=== PATIENT | female | born 1995 | race Two or more races ===

== ENCOUNTER → 2017-06-20 | Outpatient (CLI) | payer OTHER | END | disposition home or self-care (01) | LOC: LAB 12:54 | PROVIDERS: ATTEND Obstetrics & Gynecology Maternal & Fetal Medicine | DX: Z36.9 Encounter for antenatal screening, unspecified (principal) | CPT/HCPCS: 36415; 84163; 84702 ==

== ENCOUNTER → 2017-07-19 | Outpatient (CLI) | payer OTHER | END | disposition home or self-care (01) | LOC: LAB 15:39 | PROVIDERS: ATTEND Obstetrics & Gynecology Maternal & Fetal Medicine | DX: Z36.9 Encounter for antenatal screening, unspecified (principal) | CPT/HCPCS: 36415; 82105; 82677; 84702; 86336 ==

== ENCOUNTER → 2017-10-20 | Outpatient (CLI) | payer OTHER | END | disposition home or self-care (01) | LOC: LAB 07:58 | PROVIDERS: ATTEND Obstetrics & Gynecology | DX: Z34.81 Encounter for supervision of other normal pregnancy, first trimester (principal) | CPT/HCPCS: 36415; 82951 ==

== ENCOUNTER 2017-12-16 11:07 | Outpatient (CLI) | payer OTHER ==
[~2017-12-16] VITALS: Ht 154.9 cm; Wt 115.0 kg
[2017-12-16 11:19] VITALS: BP 134/88
[2017-12-16 12:22] LABS: MICROSCOPIC INDICATED
[2017-12-16 12:27] LABS: ALANINE AMINOTRANSFERASE 22 U/L (12-78); ALBUMIN 2.5 g/dL (3.4-5.0); ALKALINE PHOSPHATASE 152 U/L (45-117); ANION GAP 9 mmol/L (5-15); BILIRUBIN,TOTAL 0.3 mg/dL (0.2-1.0); CALCIUM 8.2 mg/dL (8.5-10.1); CHLORIDE 106 mmol/L (98-107); CREATININE 0.52 mg/dL (0.55-1.02); TOTAL PROTEIN 6.9 g/dL (6.4-8.2)
[2017-12-16 12:28] LABS: BILIRUBIN, DIRECT < 0.1 mg/dL (0.1-0.2)
[2017-12-16 12:57] LABS: BASOPHILS # (AUTO) 0.07 x10^3/uL (0-0.1); BASOPHILS % (AUTO) 1 % (0-1); EOSINOPHILS # (AUTO) 0.06 x10^3/uL (0-0.4); EOSINOPHILS % (AUTO) 1 % (1-7); LYMPHOCYTES # (AUTO) 1.96 x10^3/uL (1-3.4); LYMPHOCYTES % (AUTO) 15 % (22-44); MD NO; MEAN CORPUSCULAR HEMOGLOBIN 28.7 pg (27.0-34.8); MEAN CORPUSCULAR HGB CONC 33.4 g/dL (32.4-35.8); MEAN CORPUSCULAR VOLUME 85.9 fL (80-100); MEAN PLATELET VOLUME 10.7 fL (7.4-10.4); MONOCYTES # (AUTO) 0.54 x10^3/uL (0.2-0.8); MONOCYTES % (AUTO) 4 % (2-9); NEUTROPHILS # (AUTO) 10.14 x10^3/uL (1.8-6.8); NEUTROPHILS % (AUTO) 79 % (42-75); PLATELET COUNT 279 x10^3/uL (130-400); RED BLOOD COUNT 4.07 x10^6/uL (3.82-5.3); RED CELL DISTRIBUTION WIDTH 15.2 % (9.6-15.2)
[2017-12-16] MEDS ORDERED: PREN-3 PO (13:17)
== END 2017-12-16 13:30 | disposition home or self-care (01) ==
LOC: LDOP 11:07
PROVIDERS: ATTEND Obstetrics & Gynecology
DX: O10.913 Unspecified pre-existing hypertension complicating pregnancy, third trimester (principal); Z3A.38 38 weeks gestation of pregnancy
CPT/HCPCS: 36415; 59025; 80053; 81001; 82248; 82570; 84156; 84550; 85025; 99211; G0463

== ENCOUNTER 2017-12-23 08:05 | Inpatient (IN) | payer OTHER ==
[~2017-12-23] VITALS: Ht 154.9 cm; Wt 116.0 kg
[~2017-12-23 08:05] MED LIST: PREN-3 PO
[2017-12-23] MEDS ORDERED: OXYTOCIN 30U/ 0.9% NaCL 500ML 500 ML IV PRN (17:36)
[2017-12-23] MEDS ORDERED: OXYTOCIN 30U/ 0.9% NaCL 500ML 500 ML IV ONE (17:36)
[2017-12-23] MEDS: LACTATED RINGERS 1,000 ML IV SCH (17:50)
[2017-12-23] MEDS ORDERED: NEWBORN KIT ONE (17:53)
[2017-12-23] MEDS ORDERED: LIDOCAINE/PF 1%, 30ML ONE (17:54)
[2017-12-23] MEDS ORDERED: OXYTOCIN 30U/ 0.9% NaCL 500ML 500 ML ONE (17:54)
[2017-12-23] MEDS ORDERED: MISOPROSTOL 200 MCG TABLET ONE (17:54)
[2017-12-23] MEDS ORDERED: FENTANYL PF 100 MCG/2ML IV PRN (18:00)
[2017-12-23] MEDS ORDERED: TERBUTALINE 1 MG/ML, 1ML IVPush PRN (18:00)
[2017-12-23] MEDS ORDERED: ALUMINUM/MAG/SIMETHICONE 30 ML UDC PO PRN (18:00)
[2017-12-23] MEDS ORDERED: ONDANSETRON 2MG/ML, 2ML IVPush PRN (18:00)
[2017-12-23] MEDS ORDERED: PENICILLIN GK 5,000,000 UNITS in SODIUM CHLORIDE 0.9% 100 ML IVPB ONE (18:00)
[2017-12-23] MEDS ORDERED: CALCIUM CARBONATE 500 MG TAB.CHEW PO PRN (18:00)
[2017-12-23 18:12] LABS: BASOPHILS # (AUTO) 0.07 x10^3/uL (0-0.1); BASOPHILS % (AUTO) 1 % (0-1); EOSINOPHILS # (AUTO) 0.04 x10^3/uL (0-0.4); EOSINOPHILS % (AUTO) 0 % (1-7); LYMPHOCYTES # (AUTO) 1.83 x10^3/uL (1-3.4); LYMPHOCYTES % (AUTO) 14 % (22-44); MD NO; MEAN CORPUSCULAR HEMOGLOBIN 28.6 pg (27.0-34.8); MEAN CORPUSCULAR HGB CONC 33.1 g/dL (32.4-35.8); MEAN CORPUSCULAR VOLUME 86.6 fL (80-100); MEAN PLATELET VOLUME 10.9 fL (7.4-10.4); MONOCYTES # (AUTO) 0.57 x10^3/uL (0.2-0.8); MONOCYTES % (AUTO) 4 % (2-9); NEUTROPHILS # (AUTO) 10.69 x10^3/uL (1.8-6.8); NEUTROPHILS % (AUTO) 81 % (42-75); PLATELET COUNT 285 x10^3/uL (130-400); RED BLOOD COUNT 4.09 x10^6/uL (3.82-5.3); RED CELL DISTRIBUTION WIDTH 14.9 % (9.6-15.2)
[2017-12-23] MEDS ORDERED: DIPH,PERTUSS(ACELL),TET VAC/PF NC IM-VACC ONE (19:00)
[2017-12-23 20:20] LABS: ALANINE AMINOTRANSFERASE 25 U/L (12-78); ALBUMIN 2.5 g/dL (3.4-5.0); ANION GAP 9 mmol/L (5-15); CALCIUM 8.4 mg/dL (8.5-10.1); CHLORIDE 109 mmol/L (98-107)
[2017-12-23 20:22] LABS: CREATININE 0.62 mg/dL (0.55-1.02)
[2017-12-23 20:23] LABS: ALKALINE PHOSPHATASE 151 U/L (45-117); BILIRUBIN,TOTAL 0.2 mg/dL (0.2-1.0); TOTAL PROTEIN 6.9 g/dL (6.4-8.2)
[2017-12-23] MEDS: PENICILLIN GK 2,500,000 UNITS in DEXTROSE 5% 100 ML IVPB SCH (21:19)
[2017-12-23] MEDS ORDERED: FENTANYL PF 100 MCG/2ML ONE ×2 (22:05→23:23)
[2017-12-23] MEDS: FENTANYL PF 100 MCG/2ML IVPush PRN ×2 (22:06→23:24)
[2017-12-23] MEDS: D5%-LACTATED RINGERS 1,000 ML IV SCH (22:37)
[2017-12-24] MEDS ORDERED: FENTANYL PF 100 MCG/2ML ONE ×4 (01:03→05:30)
[2017-12-24] MEDS: FENTANYL PF 100 MCG/2ML IVPush PRN ×2 (01:07→02:50)
[2017-12-24] MEDS: D5%-LACTATED RINGERS 1,000 ML IV SCH (01:36)
[2017-12-24] MEDS: PENICILLIN GK 2,500,000 UNITS in DEXTROSE 5% 100 ML IVPB SCH ×2 (02:00→06:00)
[2017-12-24] MEDS ORDERED: SODIUM CITRATE/CITRIC ACID 30 ML UDC ONE (03:37)
[2017-12-24] MEDS ORDERED: METOCLOPRAMIDE 5 MG/ML, 2ML ONE (03:37)
[2017-12-24] MEDS: LACTATED RINGERS 1,000 ML IV SCH ×7 (03:39→23:53)
[2017-12-24] MEDS ORDERED: TERBUTALINE 1 MG/ML, 1ML ONE (03:40)
[2017-12-24] MEDS ORDERED: FENTANYL/BUPIV./NS/PF 250 ML EPIDCONT SCH (04:27)
[2017-12-24] MEDS ORDERED: LACTATED RINGERS 1,000 ML IV SCH (04:27)
[2017-12-24] MEDS ORDERED: FENTANYL/BUPIV./NS/PF 250 ML EPIDCONT ONE (04:29)
[2017-12-24] MEDS ORDERED: BUPIVACAINE/PF 0.25% ONE (04:29)
[2017-12-24] MEDS ORDERED: EPHEDRINE 50 MG/ML, 1ML IVPush PRN ×2 (04:30→05:30)
[2017-12-24] MEDS ORDERED: LACTATED RINGERS 1,000 ML IVBOLUS PRN (04:30)
[2017-12-24] MEDS ORDERED: NALOXONE 0.4 MG/ML, 1ML IVPush PRN (04:30)
[2017-12-24] MEDS ORDERED: CEFAZOLIN 1,000 MG ONE ×2 (05:30→05:37)
[2017-12-24] MEDS ORDERED: HYDROmorphone 1 MG/ML, 1ML IV PRN (05:30)
[2017-12-24] MEDS ORDERED: PHENYLEPHRINE 10 MG/ML ONE (05:30)
[2017-12-24] MEDS ORDERED: MIDAZOLAM 1 MG/ML, 2ML IV PRN (05:30)
[2017-12-24] MEDS ORDERED: PROMETHAZINE 25 MG/ML, 1ML IV PRN (05:30)
[2017-12-24] MEDS ORDERED: EPHEDRINE 50 MG/ML, 1ML ONE (05:30)
[2017-12-24] MEDS ORDERED: OXYcodone 5 MG/5 ML ORAL.SOL UDC PO PRN (05:30)
[2017-12-24] MEDS ORDERED: SUCCINYLCHOLINE 20 MG/ML, 10ML ONE (05:30)
[2017-12-24] MEDS ORDERED: DEXAMETHASONE 4 MG/ML, 1ML ONE (05:30)
[2017-12-24] MEDS ORDERED: KETOROLAC 30 MG/1 ML ONE (05:30)
[2017-12-24] MEDS ORDERED: ALBUTEROL SULFATE 2.5 MG/3 ML NPPB PRN (05:30)
[2017-12-24] MEDS ORDERED: OXYTOCIN 10 UNITS/ML, 1ML ONE (05:30)
[2017-12-24] MEDS ORDERED: LABETALOL 5MG/ML, 20ML IV PRN (05:30)
[2017-12-24] MEDS ORDERED: hydrALAzine 20 MG/ML, 1ML IV PRN (05:30)
[2017-12-24] MEDS ORDERED: PROPOFOL 10 MG/ML, 20ML ONE (05:30)
[2017-12-24] MEDS ORDERED: HYDROcodone/APAP 7.5-325MG/15ML UDC PO PRN (05:30)
[2017-12-24] MEDS ORDERED: ONDANSETRON 2MG/ML, 2ML IVPush PRN (05:30)
[2017-12-24] MEDS ORDERED: ONDANSETRON 2MG/ML, 2ML ONE (05:30)
[2017-12-24] MEDS ORDERED: MEPERIDINE/PF 25MG/0.5ML IVPush PRN (05:30)
[2017-12-24] MEDS ORDERED: FENTANYL PF 100 MCG/2ML IV PRN (05:30)
[2017-12-24] MEDS ORDERED: LABETALOL 5MG/ML 40ML VIAL ONE (05:37)
[2017-12-24] MEDS ORDERED: MISOPROSTOL 200 MCG TABLET ONE (06:09)
[2017-12-24] MEDS: OXYTOCIN 30U/ 0.9% NaCL 500ML 500 ML IV SCH ×2 (06:45→16:45)
[2017-12-24] MEDS ORDERED: morphine SULFATE 10 MG/ML, 1ML IVPush PRN ×2 (07:00)
[2017-12-24] MEDS ORDERED: ACETAMINOPHEN 325 MG TABLET PO PRN (07:00)
[2017-12-24] MEDS ORDERED: ONDANSETRON 2MG/ML, 2ML IV PRN (07:00)
[2017-12-24] MEDS ORDERED: IBUPROFEN 600 MG TABLET PO PRN (07:00)
[2017-12-24] MEDS ORDERED: CARBOPROST TROMETHAMINE 250 MCG/ML, 1ML IM PRN (07:00)
[2017-12-24] MEDS ORDERED: MISOPROSTOL 200 MCG TABLET PR PRN (07:00)
[2017-12-24] MEDS ORDERED: METHYLERGONOVINE 0.2 MG/ML IM PRN (07:00)
[2017-12-24] MEDS ORDERED: morphine SULFATE 10 MG/ML, 1ML ONE (08:33)
[2017-12-24] MEDS: PRENATAL VIT/IRON/FA 1 EACH TABLET PO SCH (09:00)
[2017-12-24 09:05] VITALS: BP 145/81
[2017-12-24] MEDS: OXYcodone/APAP 5/325MG TABLET PO PRN ×4 (09:27→22:14)
[2017-12-24 11:25] VITALS: BP 127/74
[2017-12-24] MEDS: KETOROLAC 30 MG/1 ML IVPush SCH ×2 (11:50→18:04)
[2017-12-24 14:11] LABS: MEAN CORPUSCULAR HEMOGLOBIN 28.4 pg (27.0-34.8); MEAN CORPUSCULAR HGB CONC 33.2 g/dL (32.4-35.8); MEAN CORPUSCULAR VOLUME 85.6 fL (80-100); MEAN PLATELET VOLUME 10.6 fL (7.4-10.4); PLATELET COUNT 244 x10^3/uL (130-400); RED BLOOD COUNT 3.65 x10^6/uL (3.82-5.3); RED CELL DISTRIBUTION WIDTH 14.9 % (9.6-15.2)
[2017-12-24 14:27] LABS: BASOPHILS % (AUTO) 0 % (0-1); EOSINOPHILS % (AUTO) 0 % (1-7); LYMPHOCYTES # (AUTO) 1.57 x10^3/uL (1-3.4); LYMPHOCYTES % (AUTO) 7 % (22-44); MD SCAN; MONOCYTES # (AUTO) 0.45 x10^3/uL (0.2-0.8); MONOCYTES % (AUTO) 2 % (2-9); NEUTROPHILS # (AUTO) 19.93 x10^3/uL (1.8-6.8); NEUTROPHILS % (AUTO) 91 % (42-75)
[2017-12-24 16:00] VITALS: BP 108/69
[2017-12-24] MEDS ORDERED: DIPH,PERTUSS(ACELL),TET VAC/PF NC IM-VACC ONE (18:30)
[2017-12-24 19:48] VITALS: BP 128/84
[2017-12-24] MEDS: DOCUSATE 100 MG CAPSULE PO PRN (22:14)
[2017-12-25] MEDS: KETOROLAC 30 MG/1 ML IVPush SCH ×2 (00:01→05:45)
[2017-12-25 00:05] VITALS: BP 126/76
[2017-12-25] MEDS: OXYTOCIN 30U/ 0.9% NaCL 500ML 500 ML IV SCH ×2 (02:45→04:11)
[2017-12-25] MEDS: LACTATED RINGERS 1,000 ML IV SCH ×2 (02:45→04:10)
[2017-12-25 04:00] VITALS: BP 119/73
[2017-12-25] MEDS: OXYcodone/APAP 5/325MG TABLET PO PRN ×5 (04:05→21:13)
[2017-12-25 07:20] VITALS: BP 136/81
[2017-12-25] MEDS: PRENATAL VIT/IRON/FA 1 EACH TABLET PO SCH (08:19)
[2017-12-25] MEDS: DOCUSATE 100 MG CAPSULE PO PRN ×2 (08:19→21:13)
[2017-12-25] MEDS: IBUPROFEN 600 MG TABLET PO PRN ×2 (12:24→18:27)
[2017-12-25] MEDS ORDERED: ONDANSETRON 4 MG TABLET ONE (13:15)
[2017-12-25] MEDS ORDERED: ONDANSETRON ODT 4 MG ONE (13:47)
[2017-12-25] MEDS ORDERED: ONDANSETRON ODT 4 MG PO PRN (14:00)
[2017-12-25 14:55] VITALS: BP 146/79
[2017-12-25] MEDS ORDERED: MEASLES,MUMPS&RUBELLA VACC/PF 0.5 ML SQ-VACC ONE ×2 (17:35→18:00)
[2017-12-25 20:07] VITALS: BP 135/76
[2017-12-26] MEDS: OXYcodone/APAP 5/325MG TABLET PO PRN ×2 (01:11→07:45)
[2017-12-26] MEDS: IBUPROFEN 600 MG TABLET PO PRN ×4 (01:11→21:31)
[2017-12-26 07:45] VITALS: BP 123/80
[2017-12-26] MEDS: PRENATAL VIT/IRON/FA 1 EACH TABLET PO SCH (07:45)
[2017-12-26] MEDS: DOCUSATE 100 MG CAPSULE PO PRN ×2 (07:45→21:31)
[2017-12-26] MEDS ORDERED: IBUP-1222 PO (08:59)
[2017-12-26] MEDS ORDERED: OXYC-302 PO (08:59)
[2017-12-26] MEDS ORDERED: SENN-1 PO (09:00)
[2017-12-26] MEDS: FERROUS GLUCONATE 324 MG TABLET PO SCH ×2 (15:58→21:31)
[2017-12-26] MEDS: HYDROcodone/APAP 5/325 TABLET PO PRN ×2 (16:12→21:31)
[2017-12-26 20:00] VITALS: BP 147/80
[2017-12-27] MEDS: HYDROcodone/APAP 5/325 TABLET PO PRN ×2 (02:35→06:11)
[2017-12-27] MEDS: IBUPROFEN 600 MG TABLET PO PRN (06:11)
[2017-12-27 07:45] VITALS: BP 146/77
[2017-12-27] MEDS: DOCUSATE 100 MG CAPSULE PO PRN (07:57)
[2017-12-27] MEDS: PRENATAL VIT/IRON/FA 1 EACH TABLET PO SCH (07:57)
[2017-12-27] MEDS: FERROUS GLUCONATE 324 MG TABLET PO SCH (07:57)
== END 2017-12-27 13:35 | disposition home or self-care (01) | DRG 765 ==
LOC: LDIP 17:29 → 2NW 12-24 09:02
PROVIDERS: ADMIT Obstetrics & Gynecology; ATTEND Obstetrics & Gynecology
PROC: 10D00Z1 Extraction of Products of Conception, Low, Open Approach (ICD-10-PCS; principal; 2017-12-24)
PROC: 3E0234Z Introduction of Serum, Toxoid and Vaccine into Muscle, Percutaneous Approach (ICD-10-PCS; 2017-12-25)
DX: O99.214 Obesity complicating childbirth (principal); Z68.42 Body mass index [BMI] 45.0-49.9, adult; E66.01 Morbid (severe) obesity due to excess calories; O10.92 Unspecified pre-existing hypertension complicating childbirth; O62.1 Secondary uterine inertia; O69.1XX0 Labor and delivery complicated by cord around neck, with compression, not applicable or unspecified; O76 Abnormality in fetal heart rate and rhythm complicating labor and delivery; O77.0 Labor and delivery complicated by meconium in amniotic fluid; O99.824 Streptococcus B carrier state complicating childbirth; Z37.0 Single live birth; Z3A.39 39 weeks gestation of pregnancy; Z23 Encounter for immunization
CPT/HCPCS: 36415; 80053; 82803; 84550; 85025; 86850; 86900; 90715; J0690; J1100; J1885; J2405; J2540; J2704; J3010; Q0162; J0330; J2270; J2370; J2590; J3105; J7120; J7121

== ENCOUNTER 2020-05-22 08:26 | Emergency (ER) | payer OTHER ==
[~2020-05-22] VITALS: Ht 154.9 cm; Wt 115.1 kg
[~2020-05-22 08:26] MED LIST changes: +IBUP-1222 PO; +OXYC-302 PO; +SENN-92 PO
[2020-05-22 08:31] VITALS: BP 141/88
== END 2020-05-22 09:49 | disposition home or self-care (01) ==
LOC: ED 08:54
DX: U07.1 COVID-19 (principal); B34.9 Viral infection, unspecified
CPT/HCPCS: 36415; 71045; 87081; 87147; 87635; 87880; 99284

== ENCOUNTER 2021-03-24 00:06 | Inpatient (IN) | payer OTHER ==
[~2021-03-24] VITALS: Ht 154.9 cm; Wt 110.0 kg
[~2021-03-24 00:06] MED LIST changes: -OXYC-302 PO; +OXYC1TAB12 PO
[2021-03-24] MEDS ORDERED: METOCLOPRAMIDE 5 MG/ML, 2ML IV ONE (06:00)
[2021-03-24] MEDS ORDERED: CEFAZOLIN PMX 2GM/50ML 100 ML IVPB ONE (06:00)
[2021-03-24] MEDS ORDERED: LACTATED RINGERS 1,000 ML IVBOLUS ONE (06:00)
[2021-03-24] MEDS ORDERED: SODIUM CITRATE/CITRIC ACID 30 ML UDC PO ONE (06:00)
[2021-03-24 06:39] LABS: BASOPHILS % (AUTO) 0 % (0-1); EOSINOPHILS % (AUTO) 1 % (1-7); LYMPHOCYTES % (AUTO) 22 % (22-44); MEAN CORPUSCULAR HEMOGLOBIN 28.3 pg (27.0-34.8); MEAN CORPUSCULAR HGB CONC 33.3 g/dL (32.4-35.8); MEAN PLATELET VOLUME 9.7 fL (7.4-10.4); MONOCYTES % (AUTO) 5 % (2-9); NEUTROPHILS % (AUTO) 72 % (42-75); PLATELET COUNT 287 x10^3/uL (130-400); RED BLOOD COUNT 3.94 x10^6/uL (3.82-5.3); RED CELL DISTRIBUTION WIDTH 14.8 % (9.6-15.2)
[2021-03-24] MEDS ORDERED: EPHEDRINE 50 MG/ML, 1ML ONE (07:00)
[2021-03-24] MEDS ORDERED: CEFAZOLIN 1,000 MG ONE ×2 (07:00→08:18)
[2021-03-24] MEDS ORDERED: ASPI-963 PO (07:00)
[2021-03-24] MEDS ORDERED: OXYTOCIN 10 UNITS/ML, 1ML ONE (07:00)
[2021-03-24] MEDS ORDERED: EPINEPHRINE 1 MG/ML, 1ML ONE (07:00)
[2021-03-24] MEDS ORDERED: FENTANYL PF 100 MCG/2ML ONE (07:01)
[2021-03-24] MEDS ORDERED: MISOPROSTOL 200 MCG TABLET ONE (07:08)
[2021-03-24] MEDS ORDERED: NEWBORN KIT ONE (07:09)
[2021-03-24] MEDS ORDERED: morphine SULFATE 10 MG/ML, 1ML IVPush PRN ×2 (07:30)
[2021-03-24] MEDS ORDERED: ACETAMINOPHEN 325 MG TABLET PO PRN ×2 (07:30)
[2021-03-24] MEDS: LACTATED RINGERS 1,000 ML IV SCH ×5 (07:30→23:30)
[2021-03-24] MEDS ORDERED: PROMETHAZINE 12.5 MG SUPP PR PRN (07:30)
[2021-03-24] MEDS ORDERED: ONDANSETRON 2MG/ML, 2ML IV PRN (07:30)
[2021-03-24] MEDS ORDERED: CARBOPROST TROMETHAMINE 250 MCG/ML, 1ML IM PRN (07:30)
[2021-03-24] MEDS ORDERED: MISOPROSTOL 200 MCG TABLET PR PRN (07:30)
[2021-03-24] MEDS ORDERED: ONDANSETRON 2MG/ML, 2ML IVPush PRN (07:30)
[2021-03-24] MEDS ORDERED: MORPHINE SULFATE 4 MG/ML, 1ML IVPush PRN (07:30)
[2021-03-24] MEDS ORDERED: FENTANYL PF 100 MCG/2ML IV PRN (07:30)
[2021-03-24] MEDS ORDERED: OXYcodone/APAP 5/325MG TABLET PO PRN (07:30)
[2021-03-24] MEDS ORDERED: MEPERIDINE/PF 25MG/0.5ML IVPush PRN (07:30)
[2021-03-24] MEDS ORDERED: OXYcodone 5 MG/5 ML ORAL.SOL UDC PO PRN (07:30)
[2021-03-24] MEDS ORDERED: METHYLERGONOVINE 0.2 MG/ML IM PRN (07:30)
[2021-03-24] MEDS ORDERED: GLYCOPYRROLATE 0.2MG/1ML, 5ML ONE (08:03)
[2021-03-24] MEDS: OXYTOCIN 30U/ 0.9% NaCL 500ML 500 ML IV SCH ×2 (08:56→17:30)
[2021-03-24 10:30] VITALS: BP 116/54
[2021-03-24] MEDS: SIMETHICONE 80 MG CHEW TAB PO PRN ×2 (12:07→20:47)
[2021-03-24] MEDS: PRENATAL VIT/IRON/FA 1 EACH TABLET PO SCH (12:07)
[2021-03-24] MEDS: OXYcodone/APAP 5/325MG TABLET PO PRN ×3 (12:07→20:47)
[2021-03-24] MEDS: IBUPROFEN 600 MG TABLET PO PRN ×2 (14:46→20:47)
[2021-03-24 16:30] VITALS: BP 128/83
[2021-03-24] MEDS: DOCUSATE 100 MG CAPSULE PO PRN (16:32)
[2021-03-24 18:01] LABS: BASOPHILS % (AUTO) 0 % (0-1); EOSINOPHILS % (AUTO) 0 % (1-7); LYMPHOCYTES % (AUTO) 19 % (22-44); MEAN CORPUSCULAR HEMOGLOBIN 27.8 pg (27.0-34.8); MEAN CORPUSCULAR HGB CONC 32.9 g/dL (32.4-35.8); MONOCYTES % (AUTO) 4 % (2-9); NEUTROPHILS % (AUTO) 77 % (42-75); PLATELET COUNT 233 x10^3/uL (130-400); RED BLOOD COUNT 3.64 x10^6/uL (3.82-5.3); RED CELL DISTRIBUTION WIDTH 14.7 % (9.6-15.2)
[2021-03-24 20:09] VITALS: BP 110/61
[2021-03-25 00:15] VITALS: BP 109/71
[2021-03-25] MEDS: OXYcodone/APAP 5/325MG TABLET PO PRN ×5 (02:03→19:16)
[2021-03-25] MEDS: IBUPROFEN 600 MG TABLET PO PRN ×4 (02:55→21:28)
[2021-03-25] MEDS: SIMETHICONE 80 MG CHEW TAB PO PRN (02:55)
[2021-03-25] MEDS: LACTATED RINGERS 1,000 ML IV SCH ×6 (03:30→23:30)
[2021-03-25] MEDS: OXYTOCIN 30U/ 0.9% NaCL 500ML 500 ML IV SCH ×3 (03:30→23:30)
[2021-03-25 04:50] VITALS: BP 114/75
[2021-03-25] MEDS ORDERED: DIPH,PERTUSS(ACELL),TET VAC/PF NC IM-VACC ONE ×2 (06:18→06:30)
[2021-03-25 08:00] VITALS: BP 113/64
[2021-03-25] MEDS: DOCUSATE 100 MG CAPSULE PO PRN ×2 (09:06→19:16)
[2021-03-25] MEDS: PRENATAL VIT/IRON/FA 1 EACH TABLET PO SCH (09:06)
[2021-03-25 14:11] VITALS: BP 122/82
[2021-03-25 18:55] VITALS: BP 130/85
[2021-03-26] MEDS: IBUPROFEN 600 MG TABLET PO PRN ×2 (03:12→10:49)
[2021-03-26] MEDS: LACTATED RINGERS 1,000 ML IV SCH ×3 (07:22→09:46)
[2021-03-26] MEDS: DOCUSATE 100 MG CAPSULE PO PRN (08:17)
[2021-03-26] MEDS: FERROUS GLUCONATE 324 MG TABLET PO SCH ×2 (08:17→12:00)
[2021-03-26] MEDS: PRENATAL VIT/IRON/FA 1 EACH TABLET PO SCH (08:17)
[2021-03-26 08:30] VITALS: BP 114/76
[2021-03-26] MEDS: OXYTOCIN 30U/ 0.9% NaCL 500ML 500 ML IV SCH ×2 (09:30→09:47)
[2021-03-26] MEDS ORDERED: OXYC1TAB12 PO (10:27)
== END 2021-03-26 12:55 | disposition home or self-care (01) | DRG 787 ==
LOC: LDIP 05:54 → 2NW 10:24
PROVIDERS: ADMIT Obstetrics & Gynecology; ATTEND Obstetrics & Gynecology
PROC: 10D00Z1 Extraction of Products of Conception, Low, Open Approach (ICD-10-PCS; principal; 2021-03-24)
DX: O99.824 Streptococcus B carrier state complicating childbirth (principal); O41.03X0 Oligohydramnios, third trimester, not applicable or unspecified; E66.01 Morbid (severe) obesity due to excess calories; O99.214 Obesity complicating childbirth; O10.92 Unspecified pre-existing hypertension complicating childbirth; Z20.822 Contact with and (suspected) exposure to COVID-19; O34.211 Maternal care for low transverse scar from previous cesarean delivery; O69.1XX0 Labor and delivery complicated by cord around neck, with compression, not applicable or unspecified; Z37.0 Single live birth; Z3A.38 38 weeks gestation of pregnancy
CPT/HCPCS: 36415; 85025; 86592; 86850; 86900; 87635; 90715; G0378; J0171; J0690; J2405; J3010; J2590; J2765; J7120